=== PATIENT | male | born 1945 | race Caucasian/White ===

== ENCOUNTER → 2018-09-04 | Outpatient (CLI) | payer OTHER ==
[~2018-09-04] MED LIST: CATAPRES-TTS 20.2 M1 TOP; CLONIDINE0.1; DEXAMETHASONE 22 M1 OR; DILANTIN 100 M100 MG OR; DIOVAN320 MG OR; FAMOTIDINE20 MG OR; LOPRESSOR PO; PERCOCET 10-321 EACH OR; VERAPAMIL HCL120 M2 OR
--- NOTE | 2018-09-04 14:15 | 2DMMODE ---
[facility] [place] [address] 2 D/M-MODE ECHOCARDIOGRAM Name: LULY ESPINOSA Room #: REG [facility]#: [id number] Admission: 09/04/18 Attend Phys: Jc Woods, Discharge: Date of : 47 Date of Service: 09/04/18 1415 Report #: [id number] THIS REPORT FOR: //name// APPROVED REPORT Study performed: 09/04/2018 13:16:48 EXAM: Comprehensive 2D, Doppler, and color-flow Echocardiogram Patient Location: Out-Patient Room #: Echo lab 2 Status: routine BSA: 2.07 HR: 75 bpm BP: 122/72 mmHg Rhythm: NSR Other Information Study Quality: Adequate Indications Hypertension/HDD 2D Dimensions RVDd: 38.57 mm IVSd: 10.62 (7-11mm) LVOT Diam: 20.21 (18-24mm) LVDd: 42.62 mm PWd: 10.70 (7-11mm) Ascending Ao: 29.66 (22-36mm) LVDs: 30.36 (25-40mm) Aortic Root: 33.88 mm IVC: 15.00 mm Volumes Left Atrial Volume (Systole) Single Plane 4CH: 20.33 mL Single Plane 2CH: 34.27 mL LA ESV Index: 16.00 mL/m2 Aortic Valve AoV Peak Crescencio.: 1.28 m/s AO Peak Gr.: 6.59 mmHg LVOT Max P.19 mmHg LVOT Max V: 1.02 m/s TRINITY Vmax: 2.56 cm2 Mitral Valve E/A Ratio: 0.7 MV Decel. Time: 258.69 ms MV E Max Crescencio.: 0.69 m/s [facility] [address] [address] 2 D/M-MODE ECHOCARDIOGRAM Name: LULY ESPINOSA Room #: REG [facility]#: [id number] Admission: 09/04/18 Attend Phys: Jc Woods, Discharge: Date of : 47 Date of Service: 09/04/18 1415 Report #: [id number] A Crescencio.: 0.93 m/s MV PHT: 75.02 ms IVRT: 101.50 ms Pulmonary Valve PV Peak Crescencio.: 0.90 m/s PV Peak Gr.: 3.27 mmHg Pulmonary Vein P Vein S: 0.59 m/s P Vein A: 0.28 m/s P Vein D: 0.35 m/s P Vein A Dur.: 129.2 msec P Vein S/D Ratio: 1.69 Left Ventricle The left ventricle is normal size. There is normal LV segmental wall motion. There is normal left ventricular wall thickness. The left ventricular systolic function is normal. The left ventricular ejection fraction is within the normal range. LVEF is 60-65%. Grade I - abnormal relaxation pattern. Right Ventricle The right ventricle is normal size. The right ventricular systolic function is normal. Atria The left atrium size is normal. The right atrium size is normal. Aortic Valve The aortic valve is mildly sclerotic. No aortic regurgitation is present. There is no aortic valvular stenosis. Mitral Valve The mitral valve is normal in structure. Trace mitral regurgitation. No evidence of mitral valve stenosis. Tricuspid Valve The tricuspid valve is normal in structure. There is no tricuspid valve regurgitation noted. Pulmonic Valve The pulmonary valve is normal in structure. There is no pulmonic valvular regurgitation. Great Vessels The aortic root is normal in size. IVC is normal in size and collapses >50% with inspiration. [address] [address] 2 D/M-MODE ECHOCARDIOGRAM Name: LULY ESPINOSA Room #: REG CL Kaylee#: [id number] Admission: 09/04/18 Attend Phys: Jc Woods, Discharge: Date of : 47 Date of Service: 09/04/18 1415 Report #: [id number] Pericardium There is no pericardial effusion. There is no pericardial effusion. <Conclusion> The left ventricular systolic function is normal. There is normal LV segmental wall motion. LVEF is 60-65%. Mild diastolic dysfunction The aortic valve is mildly sclerotic. No aortic regurgitation or stenosis The mitral valve is normal in structure. Trace mitral regurgitation. Pulmonary artery pressure could not be reliably ascertained <ELECTRONICALLY SIGNED> By: Joseph Villarreal MD, [facility] 09/04/18 1415 1415 1415 Joseph Villarreal MD, FAC /INF
== END ==
LOC: CV 11:57
DX: I35.8 Other nonrheumatic aortic valve disorders (principal); I10 Essential (primary) hypertension; I25.3 Aneurysm of heart

== ENCOUNTER 2021-05-29 10:02 | Emergency (ER) | payer OTHER ==
[~2021-05-29] VITALS: Ht 177.8 cm; Wt 79.4 kg
[2021-05-29] MEDS ORDERED: NORCO5 PO (12:46)
[2021-05-29 13:03] VITALS: BP 135/81
== END 2021-05-29 13:07 | disposition home or self-care (01) ==
LOC: ER 10:02
DX: M62.838 Other muscle spasm (principal); M54.2 Cervicalgia; I10 Essential (primary) hypertension; Z98.890 Other specified postprocedural states; Z79.899 Other long term (current) drug therapy

== ENCOUNTER → 2021-06-06 | Outpatient (CLI) | payer OTHER ==
[~2021-06-06] MED LIST changes: +NORCO5 PO
== END ==
LOC: ULTRA 08:16
PROVIDERS: ATTEND Family Medicine
DX: R79.89 Other specified abnormal findings of blood chemistry (principal)